=== PATIENT | male | born 1980 | race African-American/Black ===

== ENCOUNTER 2025-09-09 15:41 | Emergency (ER) | payer OTHER, MEDICAID ==
[~2025-09-09] VITALS: Ht 188 cm; Wt 81.2 kg
[2025-09-09 16:13] VITALS: BP 135/71; TEMP 98; O2SAT 97
[2025-09-09] MEDS ORDERED: BACI500P4 TP (16:24)
[2025-09-09] MEDS ORDERED: MUPIROCIN OINT 2% 22 GM TUBE TP ONE (16:30)
[2025-09-09] MEDS: BACI/NEOM/POLY B OINT PKT 1 UDPKT PACKET TP ONE (16:46)
== END 2025-09-09 16:48 | disposition home or self-care (01) ==
LOC: ER 16:00
DX: H93.93 Unspecified disorder of ear, bilateral (principal)